=== PATIENT | male | born 1970 | race Hispanic/Latino ===

== ENCOUNTER 2017-10-03 14:37 | Emergency (ER) | payer BC, OTHER ==
[2017-10-03 14:37] VITALS: BMI 39.0
[2017-10-03 15:08] VITALS: RESP 18
--- NOTE | 2017-10-03 16:06 | ED PDOC ---
Arrival/HPI - General Chief Complaint: Headache Time Seen by Provider: 10/03/17 15:26 Historian: Patient - History of Present Illness Narrative History of Present Illness (Text): 10/03/17 16:03 A 47 year old male, who denies any past medical history, presents to the emergency department complaining of headache for the past three days, gradually worsening over time. Patient describes headache as dull, intermittently sharp and frontal. Reports high blood pressure at work of 178/95, currently 145/90. Denies any injuries. Patient notes sensitivity to sunlight but not to bright lights. Denies similar symptoms in the past. Patient denies any nausea, vomiting , numbness or weakness in extremities or any other complaints at this time. Denies smoking or drug use. Symptom Onset: Sudden Symptom Course: Unchanged Activities at Onset: Rest Context: Work Past Medical History - Provider Review Nursing Documentation Reviewed: Yes - Past History Past History: No Previous - Infectious Disease Hx of Infectious Diseases: None - Past Medical History Past Medical History: No Previous - Psychiatric Hx Depression: No Hx Emotional Abuse: No Hx Physical Abuse: No Hx Substance Use: No - Surgical History Hx Orthopedic Surgery: Yes (RIGHT KNEE) - Suicidal Assessment Feels Threatened In Home Enviroment: No Family/Social History - Physician Review Nursing Documentation Reviewed: Yes Family/Social History: No Known Family HX Smoking Status: Unknown If Ever Smoked Hx Alcohol Use: No Hx Substance Use: No Allergies/Home Meds Allergies/Adverse Reactions: Allergies No Known Allergies Allergy (Verified 10/03/17 15:08) Home Medications: Home Meds Medication Instructions Recorded Confirmed Ibuprofen [Motrin Tab] 800 mg PO PRN PRN 10/03/17 10/03/17 Review of Systems - Physician Review All systems were reviewed & negative as marked: Yes - Review of Systems Constitutional: absent: Fevers Gastrointestinal: absent: Nausea, Vomiting Physical Exam - Physical Exam Narrative Physical Exam (Text): 10/03/17 16:02 Constitutional: No acute distress. Head: Normocephalic. Atraumatic. Eyes: PERRL. ENT: Moist mucous membranes. Neck: Supple. No nuchal rigidity. Cardiovascular: Regular rate. Chest: No tenderness. Respiratory: Clear to auscultation bilaterally. GI: Soft. Nontender. Nondistended. Back: No CVA tenderness. Musculoskeletal: No tenderness or swelling of extremities. Skin: No rash. Neurologic: Alert, no focal deficit. Vital Signs Reviewed: Yes Vital Signs Temp Pulse Resp BP Pulse Ox 10/03/17 18:37 98.0 F 66 18 145/88 100 10/03/17 15:05 97.9 F 64 18 145/90 98 10/03/17 15:04 97.9 F 64 18 145/90 98 Medical Decision Making ED Course and Treatment: 10/03/17 16:01 Impression: A 47 year old male with headache. Plan: -- CT head -- Reglan, IV fluids, Toradol, Tylenol, Benadryl -- Reassess and disposition Progress Notes: 10/03/17 17:31 CT HEAD WITHOUT CONTRAST Creator : Almaz Sosa MD FINDINGS: HEMORRHAGE: No intracranial hemorrhage. BRAIN: No mass effect or edema. The serra-white matter differentiation appears intact. Please note that MRI with diffusion imaging is more sensitive in the detection of acute ischemic event. VENTRICLES: No hydrocephalus. CALVARIUM: Unremarkable. PARANASAL SINUSES: Unremarkable as visualized. No significant inflammatory changes. MASTOID AIR CELLS: Unremarkable as visualized. No inflammatory changes. IMPRESSION: No acute intracranial pathology identified. Patient states pain of headache resolved, now feels drowsy secondary to medications. Will discharge, f/u neurology, return to ED for any worsening pain , fever, vomiting, dyspnea, or any other problem. - RAD Interpretation Radiology Orders: 10/03/17 15:50 HEAD W/O CONTRAST [CT] Stat - Medication Orders Current Medication Orders: Discontinued Medications Acetaminophen (Tylenol 325mg Tab) 975 mg PO STAT STA Stop: 10/03/17 15:52 Last Admin: 10/03/17 16:34 Dose: 975 mg Diphenhydramine HCl (Benadryl) 25 mg IVP STAT STA Stop: 10/03/17 15:52 Last Admin: 10/03/17 16:35 Dose: 25 mg IVP Administration Document 10/03/17 16:35 TIFFANI (Rec: 10/03/17 16:35 TIFFANI [id number]) Charges for Administration # of IVP Administrations 1 Sodium Chloride (Sodium Chloride 0.9%) 1,000 mls @ 999 mls/hr IV .Q1H1M STA Stop: 10/03/17 16:50 Last Admin: 10/03/17 16:41 Dose: 999 mls/hr eMAR Start Stop Document 10/03/17 16:41 KRISTIE (Rec: 10/03/17 16:42 KRISTIE [id number]) Intravenous Solution Start Date 10/03/17 Start Time 16:42 End Date 10/03/17 End time 17:42 Total Infusion Time 60 Ketorolac Tromethamine (Toradol) 30 mg IVP STAT STA Stop: 10/03/17 15:51 Last Admin: 10/03/17 16:34 Dose: 30 mg MAR Pain Assessment Document 10/03/17 16:34 RG (Rec: 10/03/17 16:35 RG [id number]) Pain Reassessment Is this a pain reassessment? Yes IVP Administration Document 10/03/17 16:34 RG (Rec: 10/03/17 16:35 RG [id number]) Charges for Administration # of IVP Administrations 1 Metoclopramide HCl (Reglan) 10 mg IVP STAT STA Stop: 10/03/17 15:52 Last Admin: 10/03/17 16:36 Dose: 10 mg IVP Administration Document 10/03/17 16:36 RG (Rec: 10/03/17 16:36 RG [id number]) Charges for Administration # of IVP Administrations 1 - Scribe Statement The provider has reviewed the documentation as recorded by the Nasim Martins Provider Scribe Attestation: All medical record entries made by the Scribe were at my direction and personally dictated by me. I have reviewed the chart and agree that the record accurately reflects my personal performance of the history, physical exam, medical decision making, and the department course for this patient. I have also personally directed, reviewed, and agree with the discharge instructions and disposition. Disposition/Present on Arrival - Present on Arrival Any Indicators Present on Arrival: No History of DVT/PE: No History of Uncontrolled Diabetes: No Urinary Catheter: No History of Decub. Ulcer: No History Surgical Site Infection Following: None - Disposition Have Diagnosis and Disposition been Completed?: Yes Diagnosis: Headache Disposition: HOME/ ROUTINE Disposition Time: 18:12 Patient Plan: Discharge Condition: STABLE Discharge Instructions (ExitCare): Acute Headache (ED) Referrals: Sebastian Blake MD [Staff Provider] - Follow up with primary Forms: [employer] (Guyanese)
[2017-10-03] MEDS: DiphenhydrAMINE 50 mg/ml Inj IVP STA (16:35)
[2017-10-03] MEDS: Sodium Chloride 0.9% 1,000 ML IV STA (16:41)
--- NOTE | 2017-10-03 17:29 | CT ---
PROCEDURE: CT HEAD WITHOUT CONTRAST. HISTORY: headache COMPARISON: Noncontrast head CT performed 02/27/13 TECHNIQUE: Axial computed tomography images were obtained through the head/brain without intravenous contrast. Radiation dose: Total exam DLP = 1061.82 mGy-cm. This CT exam was performed using one or more of the following dose reduction techniques: Automated exposure control, adjustment of the mA and/or kV according to patient size, and/or use of iterative reconstruction technique. FINDINGS: HEMORRHAGE: No intracranial hemorrhage. BRAIN: No mass effect or edema. The serra-white matter differentiation appears intact. Please note that MRI with diffusion imaging is more sensitive in the detection of acute ischemic event. VENTRICLES: No hydrocephalus. CALVARIUM: Unremarkable. PARANASAL SINUSES: Unremarkable as visualized. No significant inflammatory changes. MASTOID AIR CELLS: Unremarkable as visualized. No inflammatory changes. OTHER FINDINGS: None. IMPRESSION: No acute intracranial pathology identified.
[2017-10-03 18:38] VITALS: BP 145/88; PULSE 66; TEMP 98; O2SAT 100
== END 2017-10-03 18:40 | disposition home or self-care (01) ==
LOC: ED 14:37
DX: R51 Headache (principal)
CPT/HCPCS: 70450; 96361; 96374; 96375; 99285; J1200; J1885; J2765; J7040

== ENCOUNTER 2018-12-19 07:12 | Emergency (ER) | payer BC ==
[2018-12-19 07:41] VITALS: BMI 41.1
[2018-12-19 07:49] VITALS: BP 150/92; PULSE 67; RESP 18; TEMP 98; O2SAT 97
[2018-12-19] MEDS ORDERED: TDAP Vaccine 0.5 mL Syr IM ONE (08:08)
--- NOTE | 2018-12-19 08:18 | ED PDOC ---
Arrival/HPI - General Chief Complaint: Abnormal Skin Integrity Time Seen by Provider: 12/19/18 08:08 Historian: Patient - History of Present Illness Narrative History of Present Illness (Text): 12/19/18 08:08 Sarbjit Gonsalez is a 48 year old male, with past medical history of hypertension (on diovan), who presents to the emergency department for left index finger avulsion since earlier this morning Patient informs a razor fell on his finger and cut him in the shower. Patient informs finger was bleeding profusely but is hemostatic currently in emergency department. Patient is unsure of date for last tetanus shot. Patient denies fall or any other injury, fevers, chills, headaches, dizziness, vision changes, chest pain, shortness of breath, abdominal pain, nausea, vomiting, diarrhea, dysuria, hematuria, back pain, neck pain, r jenifer, or any other complaint. Time/Duration: 1-3 hours (early this morning) Symptom Onset: Sudden Activities at Onset: Light Context: Home Past Medical History - Past History Past History: No Previous - Infectious Disease Hx of Infectious Diseases: None - Past Medical History Past Medical History: No Previous - Cardiac Hx Cardiac Disorders: Yes - Pulmonary Hx Respiratory Disorders: No - Neurological Hx Neurological Disorder: No - HEENT Hx HEENT Disorder: No - Renal Hx Renal Disorder: No - Endocrine/Metabolic Hx Endocrine Disorders: No - Hematological/Oncological Hx Blood Disorders: No - Integumentary Hx Dermatological Disorder: No - Musculoskeletal/Rheumatological Hx Musculoskeletal Disorders: No - Gastrointestinal Hx Gastrointestinal Disorders: No - Psychiatric Hx Depression: No Hx Emotional Abuse: No Hx Physical Abuse: No Hx Substance Use: No - Surgical History Hx Orthopedic Surgery: Yes (2x r knee) - Anesthesia Hx Anesthesia: Yes Hx Anesthesia Reactions: No Hx Malignant Hyperthermia: No - Suicidal Assessment Feels Threatened In Home Enviroment: No Family/Social History Smoking Status: Unknown If Ever Smoked Hx Alcohol Use: No Hx Substance Use: No Allergies/Home Meds Allergies/Adverse Reactions: Allergies No Known Allergies Allergy (Verified 10/03/17 15:08) Home Medications: Home Meds Medication Instructions Recorded Confirmed Ibuprofen [Motrin Tab] 800 mg PO PRN PRN 10/03/17 10/03/17 Review of Systems - Physician Review All systems were reviewed & negative as marked: Yes - Review of Systems Constitutional: absent: Fevers, Other (chills) Eyes: absent: Vision Changes Respiratory: absent: SOB Cardiovascular: absent: Chest Pain Gastrointestinal: absent: Abdominal Pain, Diarrhea, Nausea, Vomiting Genitourinary Male: absent: Dysuria, Hematuria Musculoskeletal: absent: Back Pain, Neck Pain Neurological: absent: Headache, Dizziness Physical Exam Vital Signs Reviewed: Yes Vital Signs Temp Pulse Resp BP Pulse Ox 12/19/18 07:13 98.0 F 67 18 150/92 H 97 Temperature: Afebrile Blood Pressure: Normal Pulse: Regular Respiratory Rate: Normal Appearance: Positive for: Well-Appearing, Non-Toxic, Comfortable Pain Distress: None Mental Status: Positive for: Alert and Oriented X 3 - Systems Exam Upper Extremity: Present: Normal ROM, NORMAL PULSES, Neurovascularly Intact, Capillary Refill < 2s, Other (small skin avulsion to lateral aspect of left index finger ) Medical Decision Making ED Course and Treatment: 12/19/18 08:08 Impression: Patient is a 48 year old male with past medical history of hypertension (on diovan), who presents to the emergency department for left index finger avlusion since earlier this morning. Patient informs a razor fell on his finger in the shower. Patient states avulsion was profusely bleeding this morning but is hemostatic in the emergency department. Patient denies F/C/N/V/D or any other injury. On exam; small skin avulsion on lateral aspect of left index finger. Otherwise unremarkable. Plan: -- Bacitracin -- Boostrix Vaccine Inj -- Reassess and disposition Prior Visits: Notes and results from previous visits were reviewed. Progress Notes: - Medication Orders Current Medication Orders: Discontinued Medications Tetanus/Reduced Diphtheria/Acell Pertussis (Boostrix Vaccine Inj) 0.5 ml IM .ONCE ONE Stop: 12/19/18 08:09 - Scribe Statement The provider has reviewed the documentation as recorded by the Scribe Emir Menjivar All medical record entries made by the Scribe were at my direction and personally dictated by me. I have reviewed the chart and agree that the record accurately reflects my personal performance of the history, physical exam, medical decision making, and the department course for this patient. I have also personally directed, reviewed, and agree with the discharge instructions and disposition. Disposition/Present on Arrival - Present on Arrival Any Indicators Present on Arrival: No History of DVT/PE: No History of Uncontrolled Diabetes: No Urinary Catheter: No History of Decub. Ulcer: No History Surgical Site Infection Following: None - Disposition Have Diagnosis and Disposition been Completed?: Yes Diagnosis: Avulsion of skin of index finger Disposition: HOME/ ROUTINE Disposition Time: 08:16 Patient Plan: Discharge Condition: GOOD Discharge Instructions (ExitCare): Wound Care (DC) Referrals: Bear Montenegro MD [Primary Care Provider] - Follow up with primary Forms: [employer] (French), WORK NOTE
[2018-12-19] MEDS ORDERED: Bacitracin Ointment 30 GM TUBE TOP STA ×2 (08:20→08:23)
[2018-12-19] MEDS ORDERED: Bacitracin 500 Units/gm Oint Foilpak UD ONE (08:22)
== END 2018-12-19 08:35 | disposition home or self-care (01) ==
LOC: ED 07:12
DX: S61.201A Unspecified open wound of left index finger without damage to nail, initial encounter (principal); W45.8XXA Other foreign body or object entering through skin, initial encounter; Y93.E1 Activity, personal bathing and showering; Z23 Encounter for immunization